=== PATIENT | female | born 1935 | race Caucasian/White ===

== ENCOUNTER 2018-05-08 22:11 | Inpatient (IN) | payer OTHER, BC ==
[~2018-05-08] VITALS: Ht 162.6 cm; Wt 53.5 kg
[2018-05-08 22:20] VITALS: BP 192/77
--- NOTE | 2018-05-08 22:20 | NUR ---
PT BIBA BLS TO BED 6
--- NOTE | 2018-05-08 22:29 | NUR ---
PT PRESENTS TO ED BIBA FOR SOB X 10 DAYS. PT REPORTS INCREASED WORK OF BREATHING AND DIFFICULTY CATCHING BREATH X 2 DAYS. ALBUTEROL TX INITIATED EN ROUTE TO ED. PT REPORTS RELIEF FROM TX. LUNG SOUNDS CLEAR BILATERALLY. NO S/S OF DISTRESS AT THIS TIME. PT PLACED INTO BED, MADE AWARE OF PT STATUS.
[2018-05-08] MEDS ORDERED: NITROGLYCERIN 0.4 MG TAB SL ONE (22:35)
--- NOTE | 2018-05-08 22:58 | NUR ---
EKG PERFORMED AT BEDSIDE WITH FAMILY MEMBER PRESENT. PT COVERED IN GOWN DURING PROCEDURE.
[2018-05-08 23:01] LABS: BASOPHILS # (AUTO) 0.1 K/uL (0.00-0.22); BASOPHILS % (AUTO) 0.8 % (0.0-2.0); EOSINOPHILS # (AUTO) 0.3 K/uL (0-0.4); HEMATOCRIT 43.6 % (36-48); LYMPHOCYTES # (AUTO) 1.2 K/uL (2.5-16.5); LYMPHOCYTES % (AUTO) 12.1 % (20.5-51.1); MEAN CORPUSCULAR HEMOGLOBIN 28 pg (27-31); MEAN CORPUSCULAR HGB CONC 32 g/dL (33-37); MEAN CORPUSCULAR VOLUME 88.4 fL (80-94); MONOCYTES # (AUTO) 1.3 K/uL (0.8-1.0); MONOCYTES % (AUTO) 12.3 % (1.7-9.3); NEUTROPHILS # (AUTO) 7.3 K/uL (1.8-7.7); NEUTROPHILS % (AUTO) 71.8 % (42.2-75.2); PLATELET COUNT (AUTO) 195 K/uL (140-450); RED BLOOD CELL COUNT(AUTO) 4.93 MIL/uL (4.20-5.40); RED CELL DISTRIBUTION WIDTH 17.6 % (11.6-13.7); WHITE BLOOD COUNT (AUTO) 10.2 K/uL (4.8-10.8)
[2018-05-08 23:18] LABS: ALBUMIN 3.4 g/dL (3.4-5.0); ANION GAP 17.6 (8-16); ASPARTATE AMINOTRANSFERASE 56 U/L (15-37); CARBON DIOXIDE 24.3 mmol/L (21-32); CHLORIDE 101 mmol/L (98-107); CREATININE 1.3 mg/dL (0.6-1.3); GLUCOSE 103 mg/dL (74-106); POTASSIUM 4.9 mmol/L (3.5-5.1); SODIUM SERUM 138 mmol/L (136-145); TOTAL BILIRUBIN 0.6 mg/dL (0.0-1.0); UREA NITROGEN, BLOOD 36 mg/dL (7-18)
[2018-05-08] MEDS ORDERED: ACETAMINOPHEN EXTRA STRENGTH 500 MG TAB PO ONE (23:25)
[2018-05-08 23:33] LABS: PROTHROMBIN TIME 41.5 secs (10.8-13.4)
[2018-05-08] MEDS ORDERED: CLOP75TA55 PO (23:37)
[2018-05-08] MEDS ORDERED: FAMO-90 PO (23:37)
[2018-05-08] MEDS ORDERED: LEVO0.0711 PO (23:39)
[2018-05-08] MEDS ORDERED: ATRMDI IH (23:42)
[2018-05-08] MEDS ORDERED: ALBU0.0912 IH (23:42)
[2018-05-08] MEDS ORDERED: HYDR-3293 PO (23:42)
[2018-05-08] MEDS ORDERED: WARF-18 PO (23:44)
--- NOTE | 2018-05-09 00:30 | NUR ---
PT RESTING WITH FAMILY AT BEDSIDE. VSS.
[2018-05-09] MEDS ORDERED: HYDROcodone/APAP 5/325 MG 1 TAB TAB PO PRN (01:00)
[2018-05-09] MEDS ORDERED: DOCUSATE SODIUM 100 MG GELCAP PO PRN (01:00)
[2018-05-09] MEDS ORDERED: ONDANSETRON 4 MG/2 ML VIAL IM/IVP PRN (01:00)
[2018-05-09] MEDS ORDERED: LORazepam 2 MG/ML VIAL IM/IVP PRN (01:00)
[2018-05-09] MEDS ORDERED: ZOLPIDEM 5 MG TAB PO PRN (01:00)
[2018-05-09 01:30] VITALS: BP 127/67
--- NOTE | 2018-05-09 01:30 | NUR ---
RECEIVED REPORT FROM ER NURSE LORETTA. PT IS A&OX3. NO SOB OF BREATH. DENIES ANY PAIN AT THIS TIME. HAS IV ON R AC 20G. IT IS CLEAN DRY AND INTACT. PT HAS SOME BRUISE/DISCOLORATION BLE AND ARMS. PT ON NC 2L SAT 95% LUNG SOUNDS ARE CLEAR. HAS PACER ON LEFT CHEST. PT STATES MILD HEADACHE 3/10 TYLENOL WAS JUST GIVEN IN ER. WILL MONITOR. DAUGHTER IN LAW IS AT BEDSIDE. PLAN OF CARE WAS DISCUSSED. DR WELLINGTON SAW PATIENT. ALL NEEDS MET AT THIS TIME. WILL CONTINUE TO MONITOR.
--- NOTE | 2018-05-09 01:45 | NUR ---
Patient will be admitted to care of DR PEDRAZA. Admited to TELE. Will go to room 119-B. Belongings list completed. Report to PARTHA MAYER .
[2018-05-09] MEDS ORDERED: ALBUTEROL SULFATE/IPRATROPIU 3 ML SOL IH PRN (01:55)
[2018-05-09] MEDS: NACL 0.9% 1,000 ML IV SCH (02:01)
--- NOTE | 2018-05-09 02:01 | NUR ---
IVF INFUSING PER ORDERS. ALL NEEDS MET AT THIS TIME. CALL LIGHT WITHIN REACH
[2018-05-09 03:08] LABS: FREE T4 (FREE THYROXINE) 1.4 ng/dL (0.76-1.46); THYROID STIMULATING HORMONE 1.04 uIU/mL (0.34-3.74)
[2018-05-09 04:00] VITALS: BP 125/65
--- NOTE | 2018-05-09 04:00 | NUR ---
VITAL SIGNS ARE WITHIN NORMAL LIMITS. EDUCATED PT ON US OF ABDOMEN, ECHO AND NPO STATUS FOR TODAY. PT VERBALIZED UNDERSTANDING. WILL CONTINUE TO MONITOR.
[2018-05-09 07:17] LABS: BASOPHILS # (AUTO) 0.1 K/uL (0.00-0.22); BASOPHILS % (AUTO) 0.9 % (0.0-2.0); EOSINOPHILS # (AUTO) 0.3 K/uL (0-0.4); EOSINOPHILS % (AUTO) 3.3 % (0.0-4.0); HEMATOCRIT 39.8 % (36-48); HEMOGLOBIN 12.8 g/dL (12.0-16.0); LYMPHOCYTES # (AUTO) 1.2 K/uL (2.5-16.5); LYMPHOCYTES % (AUTO) 14.3 % (20.5-51.1); MEAN CORPUSCULAR HEMOGLOBIN 28 pg (27-31); MEAN CORPUSCULAR HGB CONC 32 g/dL (33-37); MONOCYTES # (AUTO) 1.1 K/uL (0.8-1.0); MONOCYTES % (AUTO) 13.2 % (1.7-9.3); NEUTROPHILS # (AUTO) 5.9 K/uL (1.8-7.7); NEUTROPHILS % (AUTO) 68.3 % (42.2-75.2); PLATELET COUNT (AUTO) 174 K/uL (140-450); RED BLOOD CELL COUNT(AUTO) 4.52 MIL/uL (4.20-5.40); WHITE BLOOD COUNT (AUTO) 8.7 K/uL (4.8-10.8)
[2018-05-09 07:24] LABS: ANION GAP 15.4 (8-16); CARBON DIOXIDE 23.4 mmol/L (21-32); CHLORIDE 106 mmol/L (98-107); CREATININE 1.2 mg/dL (0.6-1.3); GLUCOSE 91 mg/dL (74-106); POTASSIUM 4.8 mmol/L (3.5-5.1); SODIUM SERUM 140 mmol/L (136-145); UREA NITROGEN, BLOOD 32 mg/dL (7-18)
--- NOTE | 2018-05-09 07:26 | NUR ---
ENDORSED PT TO DAY SHIFT. PT IN STABLE CONDITION.
[2018-05-09] MEDS: ALBUTEROL SULFATE/IPRATROPIU 3 ML SOL IH SCH ×3 (07:27→18:57)
--- NOTE | 2018-05-09 07:27 | NUR ---
RECEIVED REPORT FROM TEXTILE DESIGNER NURSE. PT IN STABLE CONDITION. RESPIRATIONS EVEN AND UNLABORED. IV INTACT AND PATENT. SAFETY MEASURES IN PLACE. BED IN LOW POSITION. WILL CONTINUE TO MONITOR.
[2018-05-09 07:28] LABS: CHOL/HDL RATIO 2.9 (1-4.5); PHOSPHORUS 3.9 mg/dL (2.5-4.9)
[2018-05-09] MEDS ORDERED: FUROSEMIDE 40 MG/4 ML VIAL IVP SCH (08:30)
--- NOTE | 2018-05-09 08:48 | NUR ---
PATIENT HAS BEEN SCREENED AND CATEGORIZED MODERATE NUTRITION RISK. PATIENT WILL BE SEEN WITHIN 3-5 DAYS OF ADMISSION. 05/11/18 05/13/[address]
[2018-05-09] MEDS: LOSARTAN 50 MG TAB PO SCH (08:58)
[2018-05-09] MEDS: HYDROCHLOROTHIAZIDE 25 MG TAB PO SCH (08:58)
[2018-05-09] MEDS: FAMOTIDINE 20 MG TAB PO SCH (08:58)
[2018-05-09] MEDS: ACETAMINOPHEN 325 MG TAB PO PRN ×2 (08:59→19:40)
[2018-05-09] MEDS ORDERED: CLOPIDOGREL 75 MG TAB PO SCH (09:00)
[2018-05-09] MEDS ORDERED: LEVOTHYROXINE 0.075 MG TAB PO SCH (09:00)
--- NOTE | 2018-05-09 09:50 | NUR ---
PHARMACY CALLED, HOLDING WARFARIN DUE TO HIGH PT 41.5 INR 4.60 APTT 38.4
[2018-05-09 12:00] VITALS: BP 154/65
--- NOTE | 2018-05-09 12:00 | NUR ---
PT LYING IN BED TALKING TO FAMILY. PT IN STABLE CONDITION. RESPIRATIONS EVEN AND UNLABORED. WILL CONTINUE TO MONITOR.
--- NOTE | 2018-05-09 14:45 | NUR ---
CALLED [facility] PER DR. LOPEZ FOR PACEMAKER INTERGRATED BOTH SIDES. TALKED TO NORMAN WHO PAGED THE SUPERCHARGER REPAIR SUPERVISOR FOR [facility].
[2018-05-09 16:00] VITALS: BP 145/51
--- NOTE | 2018-05-09 16:00 | NUR ---
VITALS TAKEN. PT IN STABLE CONDITION. PT LYING IN BED READING A BOOK. WILL CONTINUE TO MONITOR.
--- NOTE | 2018-05-09 19:27 | NUR ---
GAVE REPORT TO TRANSPORTATION WORKER NURSE FOR CONTINUITY OF CARE. PT IN STABLE CONDITION.
--- NOTE | 2018-05-09 19:35 | NUR ---
RECEIVED PT IN STABLE CONDITION FROM AM NURSE. AWAKE,ALERT AND ORIENTED X4. ON TELE MONITOR-100 % PACED. BRP WITH ASSISTANCE. SKIN INTACT. WITH IV ACCESS ON THE RT AC #20. CLEAR AND PATENT. PLAN OF CARE DISCUSSED AND VERBALIZED UNDERSTANDING. CALL LIGHT PLACED WITHIN EASY REACH. BED ON LOW POSITION. FREQUENT ROUNDS NEEDED. SIDE RIALS UP X2. INSTRUCTED TO CALL FOR ANY ASSISTANCE. WILL CONTINUE TO MONITOR.
[2018-05-09 19:39] VITALS: BP 169/61
[2018-05-09] MEDS ORDERED: BUDESONIDE 0.25 MG/2 ML NEBU INH SCH (19:45)
--- NOTE | 2018-05-09 20:30 | NUR ---
FAMILY MEMBERS PRESENT TO CELEBRATE HOLIDAY WITH PT. PT LOOKS SO EXCITED AND HAPPY WITH FAMILY AROUND.
--- NOTE | 2018-05-09 21:00 | NUR ---
SCD MACHINE PLACED ORDERED TO THE BLE .
[2018-05-09 23:30] VITALS: BP 145/61
--- NOTE | 2018-05-09 23:45 | NUR ---
ASSISTED UP TO THE BATHROOM. VOIDED. BACK TO BED WITH NO DISCOMFORT NOTED.
[2018-05-10] MEDS: NACL 0.9% 1,000 ML IV SCH (00:57)
--- NOTE | 2018-05-10 01:00 | NUR ---
MADE ROUNDS. PT ASLEEP. NO S/S OF ANY DISCOMFORT NOTED.
--- NOTE | 2018-05-10 02:53 | NUR ---
ASSISTED UP AGAIN TO THE BATHROOM . NO SOB NOTED.
--- NOTE | 2018-05-10 03:30 | NUR ---
SPUTUM SPECIMEN SEND TO LAB.
[2018-05-10 04:20] VITALS: BP 159/61
[2018-05-10] MEDS: ACETAMINOPHEN 325 MG TAB PO PRN (04:26)
--- NOTE | 2018-05-10 05:26 | NUR ---
PT ASLEEP. NO S/S OF ANY DISCOMFORT NOR APIN NOTED.
[2018-05-10] MEDS: ALBUTEROL SULFATE/IPRATROPIU 3 ML SOL IH SCH (06:56)
--- NOTE | 2018-05-10 07:23 | NUR ---
ENDORSED PT IN STABLE CONDITION TO AM NURSE.
--- NOTE | 2018-05-10 07:24 | NUR ---
RECEIVED REPORT FROM NIGHT NURSE. PT IN STABLE CONDITION. RESPIRATIONS EVEN AND UNLABORED. IV INTACT AND PATENT. SAFETY MEASURES IN PLACE. CALL LIGHT AT BEDSIDE. REVIEWED PLAN OF CARE WITH PT, PT VERBALIZED UNDERSTANDING PLAN OF CARE. WILL CONTINUE TO MONITOR.
[2018-05-10] MEDS ORDERED: BUDESONIDE 0.25 MG/2 ML NEBU INH SCH (07:30)
[2018-05-10 07:47] LABS: CARBON DIOXIDE 20.4 mmol/L (21-32); CREATININE 1.3 mg/dL (0.6-1.3); GLUCOSE 103 mg/dL (74-106); UREA NITROGEN, BLOOD 28 mg/dL (7-18)
[2018-05-10 07:50] LABS: BASOPHILS # (AUTO) 0.1 K/uL (0.00-0.22); BASOPHILS % (AUTO) 0.8 % (0.0-2.0); EOSINOPHILS # (AUTO) 0.3 K/uL (0-0.4); EOSINOPHILS % (AUTO) 3.3 % (0.0-4.0); HEMATOCRIT 39.5 % (36-48); HEMOGLOBIN 12.8 g/dL (12.0-16.0); LYMPHOCYTES % (AUTO) 10.7 % (20.5-51.1); MEAN CORPUSCULAR HEMOGLOBIN 28 pg (27-31); MEAN CORPUSCULAR HGB CONC 32 g/dL (33-37); MEAN CORPUSCULAR VOLUME 87.4 fL (80-94); MONOCYTES # (AUTO) 1.3 K/uL (0.8-1.0); MONOCYTES % (AUTO) 13.3 % (1.7-9.3); NEUTROPHILS # (AUTO) 6.9 K/uL (1.8-7.7); NEUTROPHILS % (AUTO) 71.9 % (42.2-75.2); PLATELET COUNT (AUTO) 178 K/uL (140-450); RED BLOOD CELL COUNT(AUTO) 4.52 MIL/uL (4.20-5.40); RED CELL DISTRIBUTION WIDTH 16.6 % (11.6-13.7); WHITE BLOOD COUNT (AUTO) 9.6 K/uL (4.8-10.8)
[2018-05-10 07:52] LABS: MAGNESIUM 1.7 mg/dL (1.8-2.4); PHOSPHORUS 3.8 mg/dL (2.5-4.9)
[2018-05-10] MEDS ORDERED: BUDE90PO IH (07:58)
[2018-05-10 08:00] VITALS: BP 135/46
[2018-05-10] MEDS ORDERED: WARF3TAB PO (08:12)
[2018-05-10 08:16] LABS: ANION GAP 18.6 (8-16); CHLORIDE 99 mmol/L (98-107); SODIUM SERUM 134 mmol/L (136-145)
[2018-05-10] MEDS ORDERED: MAGNESIUM OXIDE 400 MG TAB PO SCH (08:50)
[2018-05-10] MEDS ORDERED: LEVOTHYROXINE 0.075 MG TAB PO SCH (09:00)
[2018-05-10] MEDS: FAMOTIDINE 20 MG TAB PO SCH (09:00)
--- NOTE | 2018-05-10 09:00 | NUR ---
GAVE ORDERED DUE MEDICATIONS, PT TOLERATED WELL. WILL CONTINUE TO MONITOR.
[2018-05-10] MEDS: LOSARTAN 50 MG TAB PO SCH (09:22)
[2018-05-10] MEDS: HYDROCHLOROTHIAZIDE 25 MG TAB PO SCH (09:24)
--- NOTE | 2018-05-10 10:45 | NUR ---
REVIEWED AND GAVE DISCHARGE INSTRUCTIONS. GAVE PRESCRIPTIONS TO TAKE TO PT PHARMACY, ALL QUESTIONS ANSWERED AT THIS TIME. IV REMOVED, LUMEN INTACT. PT WHEELED TO LOBBY WHERE FAMILY WAS WAITING WITH CARE. ID BANDS REMOVED. PT IN STABLE CONDITION.
== END 2018-05-10 10:45 | disposition home or self-care (01) | DRG 682 ==
LOC: MED 22:11 → MTU 05-09 00:57
PROVIDERS: ADMIT General Practice; ATTEND General Practice
DX: N17.0 Acute kidney failure with tubular necrosis (principal); I50.43 Acute on chronic combined systolic (congestive) and diastolic (congestive) heart failure; I16.1 Hypertensive emergency; J44.1 Chronic obstructive pulmonary disease with (acute) exacerbation; E87.1 Hypo-osmolality and hyponatremia; I11.0 Hypertensive heart disease with heart failure; Z95.0 Presence of cardiac pacemaker; I48.0 Paroxysmal atrial fibrillation; I25.10 Atherosclerotic heart disease of native coronary artery without angina pectoris; Z95.1 Presence of aortocoronary bypass graft; E03.9 Hypothyroidism, unspecified; K21.9 Gastro-esophageal reflux disease without esophagitis; E86.0 Dehydration; R74.0 Nonspecific elevation of levels of transaminase and lactic acid dehydrogenase [LDH]; K76.0 Fatty (change of) liver, not elsewhere classified; E78.5 Hyperlipidemia, unspecified; E83.42 Hypomagnesemia; Z79.899 Other long term (current) drug therapy
CPT/HCPCS: 36415; 71045; 76705; 80048; 80053; 82150; 82550; 82553; 83690; 83735; 83880; 84100; 84439; 84443; 84484; 85025; 85610; 85730; 86886; 86900; 86901; 87081; 87205; 93005; 94640; 99285; J1940; J7030; J7620; J7626; Q0092